=== PATIENT | male | born 1970 | race Caucasian/White ===

== ENCOUNTER 2020-12-06 20:15 | Inpatient (IN) ==
[2020-12-06 21:14] LABS: Basophils % 0.2 % (0.0-0.8); Hematocrit 40.4 VOL% (42.0-52.0); Hemoglobin 13.4 GM/DL (14.0-18.0); Immature Granulocytes % 1.7 %; Immature Granulocytes Absolute 0.11 #; Lymphocytes # 1.2 10*3/uL (1.4-4.0); Lymphocytes % 17.5 % (21.2-54.2); Mean Corpuscular HGB Conc 33.2 GM/DL (32-36); Mean Corpuscular Volume 86.1 FL (87-102); Mean Platelet Volume 10.2 FL (9.6-12.0); Monocytes % 5.5 % (1.7-12.7); Neutrophils % 75.1 % (38.7-73.9); Platelet Count 241 T/CUMM (130-400); Red Blood Count 4.69 MC/CUMM (3.8-5.5); Red Cell Distribution Width 14.1 % (9.3-17.3); White Blood Count 6.6 T/CUMM (4-12)
[2020-12-06] MEDS ORDERED: DEXAMETHASONE 4 MG/1 ML VIAL IV STA (21:16)
[2020-12-06 21:30] LABS: PT Patient Result 10.9 SECS (9.8-11.9)
[2020-12-06 21:31] LABS: Albumin 2.8 G/DL (3.4-5.0); Bilirubin,Total 0.7 MG/DL (0.2-1.0); Calcium 8.9 MG/DL (8.5-10.1); Osmolality,Calculated 276.8 MOS/KG (273-304); Potassium 3.8 MMOL/L (3.5-5.1); Total Protein 7.2 G/DL (5.0-7.5)
[2020-12-06] MEDS ORDERED: SODIUM CHLORIDE 0.9% 1,000 ML IV STA (23:10)
[2020-12-06] MEDS ORDERED: cefTRIAXone 1,000 MG in SODIUM CHLORIDE 0.9% 100 ML IV STA (23:24)
[2020-12-07] MEDS ORDERED: AZITHROMYCIN INJ 500 MG in SODIUM CHLORIDE 0.9% 250 ML IV STA (00:07)
[2020-12-07] MEDS ORDERED: diphenhydrAMINE CAP 25 MG CAPSULE PO PRN (00:32)
[2020-12-07] MEDS ORDERED: ONDANSETRON 4 MG/2 ML VIAL IV PRN (00:32)
[2020-12-07] MEDS ORDERED: hydrALAZINE 20 MG/1 ML VIAL IV PRN (00:32)
[2020-12-07] MEDS ORDERED: BISACODYL 5 MG TABLET PO PRN (00:32)
[2020-12-07] MEDS ORDERED: DEXTROSE 50% 25 GM/50 ML VIAL IV PRN ×3 (00:32→15:18)
[2020-12-07] MEDS ORDERED: ACETAMINOPHEN 325 MG TABLET PO PRN (00:32)
[2020-12-07] MEDS ORDERED: NICOTINE 21 MG/24 HR PATCH TRANSDERM PRN (00:32)
[2020-12-07] MEDS ORDERED: GLUCAGON 1 MG VIAL IM PRN ×2 (00:32→15:18)
[2020-12-07] MEDS ORDERED: ALUMINUM/MAGNES/SIMETH MAX STR 30 ML UDCUP PO PRN (00:32)
[2020-12-07] MEDS ORDERED: ZALEPLON 5 MG CAPSULE PO PRN (00:32)
[2020-12-07] MEDS ORDERED: ALBUTEROL INHALER 18 GM INH PRN (01:28)
[2020-12-07] MEDS: SODIUM CHLORIDE 0.9% 1,000 ML IV SCH ×2 (01:40→20:40)
[2020-12-07] MEDS: ALBUTEROL INHALER 18 GM INH SCH ×6 (02:30→23:45)
[2020-12-07 05:27] LABS: Basophils % 0.2 % (0.0-0.8); Hematocrit 37.7 VOL% (42.0-52.0); Hemoglobin 12.2 GM/DL (14.0-18.0); Immature Granulocytes % 2.7 %; Immature Granulocytes Absolute 0.22 #; Lymphocytes # 1.2 10*3/uL (1.4-4.0); Lymphocytes % 14.6 % (21.2-54.2); Mean Corpuscular HGB Conc 32.4 GM/DL (32-36); Mean Corpuscular Volume 89.1 FL (87-102); Mean Platelet Volume 10.1 FL (9.6-12.0); Monocytes % 5.2 % (1.7-12.7); Neutrophils % 77.3 % (38.7-73.9); Platelet Count 233 T/CUMM (130-400); Red Blood Count 4.23 MC/CUMM (3.8-5.5); Red Cell Distribution Width 14.5 % (9.3-17.3); White Blood Count 8.2 T/CUMM (4-12)
[2020-12-07 05:47] LABS: Calcium 8.3 MG/DL (8.5-10.1); Osmolality,Calculated 283.1 MOS/KG (273-304); Potassium 4.6 MMOL/L (3.5-5.1)
[2020-12-07 05:53] LABS: Hypochromasia Slight; Microcytosis Slight; Platelet Estimate Adequate
[2020-12-07] MEDS: ASCORBIC ACID 500 MG TABLET PO SCH ×2 (08:54→20:40)
[2020-12-07] MEDS: PANTOPRAZOLE 40 MG TABLET PO SCH (08:55)
[2020-12-07] MEDS: CLOPIDOGREL 75 MG TABLET PO SCH (08:55)
[2020-12-07] MEDS: FAMOTIDINE 20 MG TABLET PO SCH ×2 (08:55→20:40)
[2020-12-07] MEDS ORDERED: METOPROLOL SUCCINATE XL 50 MG TABLET PO SCH (09:00)
[2020-12-07] MEDS ORDERED: REMDESIVIR 200 MG in SODIUM CHLORIDE 0.9% 210 ML IV ONE (09:00)
[2020-12-07] MEDS ORDERED: HEPARIN 5,000 UNIT/1 ML VIAL SUBCUT SCH (09:00)
[2020-12-07] MEDS ORDERED: DEXAMETHASONE 4 MG/1 ML VIAL IV SCH (09:00)
[2020-12-07] MEDS: ASPIRIN EC 81 MG TABLET PO SCH (09:21)
[2020-12-07] MEDS: methylPREDNISolone SOD SUC 40 MG/1 ML VIAL IV SCH ×2 (09:22→17:32)
[2020-12-07] MEDS: CHOLECALCIFEROL 1,000 UNIT TABLET PO SCH (09:22)
[2020-12-07] MEDS: ENOXAPARIN 30 MG/0.3 ML SYRINGE SUBCUT SCH (09:22)
[2020-12-07] MEDS: ZINC GLUCONATE 50 MG TABLET PO SCH (09:23)
[2020-12-07 11:41] LABS: ABG Base Excess -3.5 MMOL/L (-2.5-2.5); ABG HCO3 21.4 MMOL/L (20-26); ABG Oxygen Saturation 93.3 % (95-100); ABG PCO2 44.7 MM HG (35-48); ABG PH 7.316 (7.35-7.45); ABG PO2 75.3 MM HG (80-95); ABG TCO2 20.2 MMOL/L (23-27)
[2020-12-07] MEDS: INSULIN LISPRO 100 UNIT/ML SUBCUT SCH ×3 (11:51→20:40)
[2020-12-07] MEDS ORDERED: ALPRAZolam 0.5 MG TABLET PO ONE (12:09)
[2020-12-07] MEDS ORDERED: INSULIN GLARGINE 100 UNIT/ML SUBCUT ONE (15:55)
[2020-12-07] MEDS: methylPREDNISolone SOD SUC 125 MG/2 ML VIAL IV SCH ×2 (16:35→23:45)
[2020-12-07 18:25] LABS: Bilirubin,Urine Negative (Negative); Blood, Urine Negative (Negative); Glucose,Urine (UA) >=500 mg/dL (Negative); Hyaline Casts,Urine 3 /LPF (0-3); Ketones,Urine 5 mg/dL (Negative); Mucus,Urine Occasional /LPF (Occasional); Nitrite,Urine Negative (Negative); Protein,Urine Negative; RBC,Urine <1 /HPF (0-4); Urine Appearance CLEAR (Clear); Urine Color Straw (Yellow); Urine Specific Gravity 1.015 (1.001-1.035); Urine Urobilinogen < 2.0 EU/DL (0.2-1.0); WBC,Urine 1 /HPF (0-6)
[2020-12-07] MEDS ORDERED: SODIUM CHLORIDE 0.9% 1,000 ML IV SCH (18:30)
[2020-12-07] MEDS: ALPRAZolam 0.5 MG TABLET PO SCH (20:40)
[2020-12-07] MEDS: AZITHROMYCIN INJ 500 MG in SODIUM CHLORIDE 0.9% 250 ML IV SCH (20:43)
[2020-12-07] MEDS ORDERED: cefTRIAXone 1,000 MG in SYRINGE 1 EACH IV SCH (21:00)
[2020-12-07] MEDS ORDERED: INSULIN GLARGINE 100 UNIT/ML SUBCUT SCH (21:00)
[2020-12-08] MEDS: ALBUTEROL INHALER 18 GM INH SCH ×6 (02:45→23:37)
[2020-12-08 05:47] LABS: Basophils % 0.2 % (0.0-0.8); Hematocrit 40.8 VOL% (42.0-52.0); Hemoglobin 12.8 GM/DL (14.0-18.0); Immature Granulocytes % 2.1 %; Immature Granulocytes Absolute 0.19 #; Lymphocytes # 1.2 10*3/uL (1.4-4.0); Lymphocytes % 13.2 % (21.2-54.2); Mean Corpuscular HGB Conc 31.4 GM/DL (32-36); Mean Corpuscular Volume 90.5 FL (87-102); Neutrophils % 78.5 % (38.7-73.9); Platelet Count 320 T/CUMM (130-400); Red Blood Count 4.51 MC/CUMM (3.8-5.5); Red Cell Distribution Width 14.1 % (9.3-17.3); White Blood Count 9.2 T/CUMM (4-12)
[2020-12-08 06:07] LABS: Albumin 2.4 G/DL (3.4-5.0); Bilirubin,Direct 0.19 MG/DL (0.0-0.20); Bilirubin,Indirect 0.3 MG/DL (0.0-1.0); Bilirubin,Total 0.5 MG/DL (0.2-1.0); Calcium 8.7 MG/DL (8.5-10.1); Ferritin 1105.1 ng/ml (26-388); Osmolality,Calculated 293.1 MOS/KG (273-304); Potassium 4.7 MMOL/L (3.5-5.1); Total Protein 6.9 G/DL (5.0-7.5)
[2020-12-08] MEDS ORDERED: DEXTROSE 50% 25 GM/50 ML VIAL IV PRN (07:47)
[2020-12-08] MEDS ORDERED: GLUCAGON 1 MG VIAL IM PRN (07:47)
[2020-12-08] MEDS: CHOLECALCIFEROL 1,000 UNIT TABLET PO SCH (09:00)
[2020-12-08] MEDS: ALPRAZolam 0.5 MG TABLET PO SCH ×2 (09:01→21:50)
[2020-12-08] MEDS: ZINC GLUCONATE 50 MG TABLET PO SCH (09:01)
[2020-12-08] MEDS: ENOXAPARIN 30 MG/0.3 ML SYRINGE SUBCUT SCH (09:01)
[2020-12-08] MEDS: ASPIRIN EC 81 MG TABLET PO SCH (09:01)
[2020-12-08] MEDS: ASCORBIC ACID 500 MG TABLET PO SCH ×2 (09:01→21:50)
[2020-12-08] MEDS: FAMOTIDINE 20 MG TABLET PO SCH ×2 (09:01→21:50)
[2020-12-08] MEDS: CLOPIDOGREL 75 MG TABLET PO SCH (09:01)
[2020-12-08] MEDS: PANTOPRAZOLE 40 MG TABLET PO SCH (09:01)
[2020-12-08] MEDS: REMDESIVIR 100 MG in SODIUM CHLORIDE 0.9% 100 ML IV SCH (09:02)
[2020-12-08] MEDS: methylPREDNISolone SOD SUC 125 MG/2 ML VIAL IV SCH ×2 (09:02→16:23)
[2020-12-08] MEDS: INSULIN LISPRO 100 UNIT/ML SUBCUT SCH ×4 (09:04→21:50)
[2020-12-08] MEDS: ENOXAPARIN 40 MG/0.4 ML SYRINGE SUBCUT SCH (09:20)
[2020-12-08] MEDS: INSULIN GLARGINE 100 UNIT/ML SUBCUT SCH ×2 (11:35→21:50)
[2020-12-08] MEDS ORDERED: INSULIN GLARGINE 100 UNIT/ML SUBCUT ONE (16:49)
[2020-12-08] MEDS: AZITHROMYCIN INJ 500 MG in SODIUM CHLORIDE 0.9% 250 ML IV SCH (21:50)
[2020-12-09] MEDS: methylPREDNISolone SOD SUC 40 MG/1 ML VIAL IV SCH ×3 (00:06→20:45)
[2020-12-09] MEDS: ALBUTEROL INHALER 18 GM INH SCH ×6 (02:12→22:00)
[2020-12-09 06:37] LABS: Potassium 4.7 MMOL/L (3.5-5.1)
[2020-12-09] MEDS: guaiFENesin/DM ER 600-30 MG TABLET PO PRN (09:16)
[2020-12-09] MEDS: ASPIRIN EC 81 MG TABLET PO SCH (09:16)
[2020-12-09] MEDS: ENOXAPARIN 40 MG/0.4 ML SYRINGE SUBCUT SCH (09:16)
[2020-12-09] MEDS: CLOPIDOGREL 75 MG TABLET PO SCH (09:16)
[2020-12-09] MEDS: ASCORBIC ACID 500 MG TABLET PO SCH ×2 (09:16→20:45)
[2020-12-09] MEDS: PANTOPRAZOLE 40 MG TABLET PO SCH (09:16)
[2020-12-09] MEDS: ALPRAZolam 0.5 MG TABLET PO SCH ×2 (09:16→20:45)
[2020-12-09] MEDS: ZINC GLUCONATE 50 MG TABLET PO SCH (09:16)
[2020-12-09] MEDS: CHOLECALCIFEROL 1,000 UNIT TABLET PO SCH (09:16)
[2020-12-09] MEDS: INSULIN LISPRO 100 UNIT/ML SUBCUT SCH ×4 (09:17→20:45)
[2020-12-09] MEDS: FAMOTIDINE 20 MG TABLET PO SCH ×2 (09:17→20:45)
[2020-12-09] MEDS: INSULIN GLARGINE 100 UNIT/ML SUBCUT SCH ×2 (09:17→20:45)
[2020-12-09] MEDS: REMDESIVIR 100 MG in SODIUM CHLORIDE 0.9% 100 ML IV SCH (09:20)
[2020-12-09] MEDS ORDERED: INSULIN GLARGINE 100 UNIT/ML SUBCUT ONE (11:09)
[2020-12-09] MEDS: AZITHROMYCIN INJ 500 MG in SODIUM CHLORIDE 0.9% 250 ML IV SCH (20:47)
[2020-12-10] MEDS: ALBUTEROL INHALER 18 GM INH SCH ×6 (02:24→22:43)
[2020-12-10 06:57] LABS: Basophils # 0.1 10*3/uL (0.0-0.2); Basophils % 0.6 % (0.0-0.8); Hemoglobin 13.1 GM/DL (14.0-18.0); Immature Granulocytes % 6.6 %; Immature Granulocytes Absolute 0.87 #; Lymphocytes # 1.1 10*3/uL (1.4-4.0); Lymphocytes % 8.3 % (21.2-54.2); Mean Corpuscular HGB Conc 31.2 GM/DL (32-36); Mean Corpuscular Volume 91.9 FL (87-102); Mean Platelet Volume 9.9 FL (9.6-12.0); Monocytes % 6.6 % (1.7-12.7); Neutrophils % 77.9 % (38.7-73.9); Platelet Count 371 T/CUMM (130-400); Red Blood Count 4.57 MC/CUMM (3.8-5.5); White Blood Count 13.2 T/CUMM (4-12)
[2020-12-10 07:27] LABS: Band Neutrophils 2 % (0-10); Lymphocytes 9 % (20-55); Nucleated Red Blood Cells 1 (0-5); Platelet Estimate Adequate; Segmented Neutrophils 86 % (50-85); Total Cells Counted 100
[2020-12-10 07:30] LABS: Calcium 8.9 MG/DL (8.5-10.1); Osmolality,Calculated 285.1 MOS/KG (273-304); Potassium 5.4 MMOL/L (3.5-5.1)
[2020-12-10 07:38] LABS: Albumin 2.5 G/DL (3.4-5.0); Bilirubin,Direct 0.22 MG/DL (0.0-0.20); Bilirubin,Indirect 0.4 MG/DL (0.0-1.0); Bilirubin,Total 0.6 MG/DL (0.2-1.0); Ferritin 991.8 ng/ml (26-388); Osmolality,Calculated 285.1 MOS/KG (273-304); Potassium 4.9 MMOL/L (3.5-5.1); Total Protein 6.8 G/DL (5.0-7.5)
[2020-12-10] MEDS: INSULIN GLARGINE 100 UNIT/ML SUBCUT SCH ×2 (10:22→21:18)
[2020-12-10] MEDS: INSULIN LISPRO 100 UNIT/ML SUBCUT SCH ×4 (10:22→21:17)
[2020-12-10] MEDS: CHOLECALCIFEROL 1,000 UNIT TABLET PO SCH (10:23)
[2020-12-10] MEDS: ZINC GLUCONATE 50 MG TABLET PO SCH (10:23)
[2020-12-10] MEDS: FAMOTIDINE 20 MG TABLET PO SCH ×2 (10:23→21:11)
[2020-12-10] MEDS: PANTOPRAZOLE 40 MG TABLET PO SCH (10:23)
[2020-12-10] MEDS: CLOPIDOGREL 75 MG TABLET PO SCH (10:23)
[2020-12-10] MEDS: ASPIRIN EC 81 MG TABLET PO SCH (10:23)
[2020-12-10] MEDS: ASCORBIC ACID 500 MG TABLET PO SCH ×2 (10:23→21:11)
[2020-12-10] MEDS: ALPRAZolam 0.5 MG TABLET PO SCH ×2 (10:24→21:11)
[2020-12-10] MEDS: ENOXAPARIN 40 MG/0.4 ML SYRINGE SUBCUT SCH (10:24)
[2020-12-10] MEDS: methylPREDNISolone SOD SUC 40 MG/1 ML VIAL IV SCH ×3 (10:25→22:41)
[2020-12-10] MEDS: REMDESIVIR 100 MG in SODIUM CHLORIDE 0.9% 100 ML IV SCH (10:25)
[2020-12-10] MEDS ORDERED: INSULIN GLARGINE 100 UNIT/ML SUBCUT ONE (10:38)
[2020-12-10] MEDS ORDERED: SODIUM POLYSTYRENE SULFATE 15 GM/60 ML BOTTLE PO STA (11:00)
[2020-12-10] MEDS: guaiFENesin/DM ER 600-30 MG TABLET PO PRN (18:14)
[2020-12-10] MEDS: AZITHROMYCIN INJ 500 MG in SODIUM CHLORIDE 0.9% 250 ML IV SCH (21:16)
[2020-12-11] MEDS: ALBUTEROL INHALER 18 GM INH SCH ×6 (04:11→23:15)
[2020-12-11 07:26] LABS: Calcium 8.7 MG/DL (8.5-10.1); Osmolality,Calculated 287.8 MOS/KG (273-304); Potassium 4.2 MMOL/L (3.5-5.1)
[2020-12-11] MEDS: INSULIN LISPRO 100 UNIT/ML SUBCUT SCH ×4 (07:59→20:39)
[2020-12-11] MEDS: CLOPIDOGREL 75 MG TABLET PO SCH (08:00)
[2020-12-11] MEDS: ZINC GLUCONATE 50 MG TABLET PO SCH (08:00)
[2020-12-11] MEDS: ALPRAZolam 0.5 MG TABLET PO SCH ×2 (08:00→20:38)
[2020-12-11] MEDS: ASCORBIC ACID 500 MG TABLET PO SCH ×2 (08:00→20:39)
[2020-12-11] MEDS: PANTOPRAZOLE 40 MG TABLET PO SCH (08:00)
[2020-12-11] MEDS: ASPIRIN EC 81 MG TABLET PO SCH (08:00)
[2020-12-11] MEDS: FAMOTIDINE 20 MG TABLET PO SCH ×2 (08:00→20:38)
[2020-12-11] MEDS: INSULIN GLARGINE 100 UNIT/ML SUBCUT SCH ×2 (08:01→20:39)
[2020-12-11] MEDS: CHOLECALCIFEROL 1,000 UNIT TABLET PO SCH (08:01)
[2020-12-11] MEDS: ENOXAPARIN 40 MG/0.4 ML SYRINGE SUBCUT SCH (08:02)
[2020-12-11] MEDS: REMDESIVIR 100 MG in SODIUM CHLORIDE 0.9% 100 ML IV SCH (08:24)
[2020-12-11] MEDS: methylPREDNISolone SOD SUC 40 MG/1 ML VIAL IV SCH ×2 (10:58→22:28)
[2020-12-12] MEDS: ALBUTEROL INHALER 18 GM INH SCH ×3 (03:15→12:44)
[2020-12-12 07:08] LABS: Basophils % 0.2 % (0.0-0.8); Eosinophils % 0.1 % (0.00-10.9); Hematocrit 42.6 VOL% (42.0-52.0); Hemoglobin 13.9 GM/DL (14.0-18.0); Immature Granulocytes % 9.5 %; Immature Granulocytes Absolute 1.21 #; Lymphocytes # 1.1 10*3/uL (1.4-4.0); Lymphocytes % 8.8 % (21.2-54.2); Mean Corpuscular HGB Conc 32.6 GM/DL (32-36); Mean Corpuscular Volume 87.8 FL (87-102); Mean Platelet Volume 9.8 FL (9.6-12.0); Monocytes % 5.2 % (1.7-12.7); NRBC # 0.05 10*3/uL; Neutrophils % 76.2 % (38.7-73.9); Platelet Count 380 T/CUMM (130-400); Red Blood Count 4.85 MC/CUMM (3.8-5.5); Red Cell Distribution Width 13.4 % (9.3-17.3); White Blood Count 12.8 T/CUMM (4-12)
[2020-12-12 07:47] LABS: Ferritin 979.5 ng/ml (26-388); Osmolality,Calculated 283.8 MOS/KG (273-304); Potassium 4.2 MMOL/L (3.5-5.1)
[2020-12-12 08:03] LABS: Hypochromasia 1+; Lymphocytes 8 % (20-55); Metamyelocytes 2 %; Microcytosis 1+; Myelocytes 2 %; Segmented Neutrophils 81 % (50-85); Total Cells Counted 100
[2020-12-12 08:04] LABS: Platelet Estimate Normal
[2020-12-12] MEDS: INSULIN LISPRO 100 UNIT/ML SUBCUT SCH ×2 (09:26→13:29)
[2020-12-12] MEDS: CLOPIDOGREL 75 MG TABLET PO SCH (09:57)
[2020-12-12] MEDS: PANTOPRAZOLE 40 MG TABLET PO SCH (09:57)
[2020-12-12] MEDS: INSULIN GLARGINE 100 UNIT/ML SUBCUT SCH (09:57)
[2020-12-12] MEDS: ASPIRIN EC 81 MG TABLET PO SCH (09:57)
[2020-12-12] MEDS: CHOLECALCIFEROL 1,000 UNIT TABLET PO SCH (09:57)
[2020-12-12] MEDS: FAMOTIDINE 20 MG TABLET PO SCH (09:57)
[2020-12-12] MEDS: ALPRAZolam 0.5 MG TABLET PO SCH (09:57)
[2020-12-12] MEDS: ASCORBIC ACID 500 MG TABLET PO SCH (09:57)
[2020-12-12] MEDS: ENOXAPARIN 40 MG/0.4 ML SYRINGE SUBCUT SCH (09:58)
[2020-12-12] MEDS: ZINC GLUCONATE 50 MG TABLET PO SCH (09:58)
[2020-12-12] MEDS: methylPREDNISolone SOD SUC 40 MG/1 ML VIAL IV SCH (09:58)
[2020-12-12 11:00] VITALS: BP 134/84
== END 2020-12-12 14:40 | disposition home or self-care (01) | DRG 177 ==
LOC: N.ED 20:15 → N.EDINP 12-07 00:32 → N.2E 12-07 01:28
PROVIDERS: ADMIT Internal Medicine; ATTEND Internal Medicine